=== PATIENT | male | born 1945 | race African-American/Black ===

== ENCOUNTER 2019-01-11 05:53 | Day surgery (SDC) | payer MEDICARE, MEDICAID ==
[2019-01-04 10:33] LABS: ANION GAP 8 mmol/L (5-15); BLOOD UREA NITROGEN 26 mg/dL (7-18); CALCIUM 9.3 MG/DL (8.5-10.1); CARBON DIOXIDE 28 MMOL/L (21-32); CHLORIDE 107 MMOL/L (98-107); CREATININE 0.8 MG/DL (0.55-1.30); POTASSIUM 5.1 MMOL/L (3.5-5.1); SODIUM 143 MMOL/L (136-145)
[2019-01-04 10:46] LABS: BASOPHILS % (AUTO) 2.1 % (0.0-2.0); HEMATOCRIT 42.9 % (42.0-52.0); HEMOGLOBIN 14.8 G/DL (14.2-18.0); LYMPHOCYTES % (AUTO) 18.9 % (20.0-45.0); MEAN CORPUSCULAR VOLUME 91 FL (80-99); NEUTROPHILS % (AUTO) 71.1 % (45.0-75.0); PLATELET COUNT 222 K/UL (150-450); RED BLOOD COUNT 4.69 M/UL (4.70-6.10); RED CELL DISTRIBUTION WIDTH 11.8 % (11.6-14.8); WHITE BLOOD COUNT 5.8 K/UL (4.8-10.8)
--- NOTE | 2019-01-04 19:37 | Cardiology Report ---
APPROVED REPORT EKG Measurement Heart [id number] Sinus bradycardia Abnormal ECG
--- NOTE | 2019-01-08 11:46 | Opthalmology H&P ---
Ophthalmology H&P H&P Chief Complaint: decreased vision in right eye HPI Vision Affects Ability to: read, focus/use eyes together, manage personal affairs HPI Narrative Blurry Vision Exam Visual Acuity: OD 20/80 OS Counting Fingers Tension: OD 17 OS 17 Eye Exam: normal OU: external exam, palpebral fissure-width, marginal reflex distance, levator function, corneas, anterior chambers; findings: lens - NS Cataract Ou, fundus exam - Poor View OS Assessment/Plan Treatment Plan: cataract extraction w/ lens implant Goals of Treatment: improvement of vision, enhance quality of life Attestation Attestation The risks and benefits of the surgery as well as alternative procedures were explained to the patient in detail. Henrik Narvaez MD Jan 08, 2019 11:46
--- NOTE | 2019-01-08 11:48 | Pre-Procedure Note/Attestation ---
Pre-Procedure Note/Attestation Complete Prior to Procedure Planned Procedure: right Procedure Narrative: Cataract Extraction With Intraocular Lens Implant Right Eye Indications for Procedure Pre-Operative Diagnosis: Nuclear Sclerotic Cataract Right Eye Attestation I attest that I discussed the nature of the procedure; its benefits; risks and complications; and alternatives (and the risks and benefits of such alternatives ), prior to the procedure, with the patient (or the patient's legal representative government relations). I attest that, if there was a reasonable possibility of needing a blood transfusion, the patient (or the patient's legal representative government relations) was given the [facility] standardized written summary, pursuant to the Michel Adalid Blood Safety Act ([place] Health and Safety Code # 1645, as amended). I attest that I re-evaluated the patient just prior to the surgery and that there has been no change in the patient's H&P, except as documented below: Henrik Narvaez MD Jan 08, 2019 11:48
[~2019-01-11] VITALS: Ht 180.3 cm; Wt 72.1 kg
[2019-01-11] VITALS (8 sets, daily range): BP systolic 137–174; BP diastolic 69–90
[~2019-01-11 05:53] MED LIST: ACETAMINOPHEN-1 EAC1 ORAL; CLARITIN10 M1 ORAL; FLUTICASONE PRO16 G1 NASAL; KENALOG 0.025%15 GM APPLIC; NAPROXEN500 M2 ORAL; NORCO 10/3251 EA ORAL; OMEPRAZOLE DR PO; VENTOLIN HFA18 GM INH
[2019-01-11] MEDS: Phenylephrine 10% Opth Soln 5ml RIGHT EYE SCH ×3 (06:30→06:48)
[2019-01-11] MEDS: Cyclopentolate 1% Opth Sol 2ml RIGHT EYE SCH ×3 (06:30→06:48)
[2019-01-11] MEDS: Diclofenac Sod 0.1% Op Soln RIGHT EYE SCH ×3 (06:30→06:48)
[2019-01-11] MEDS: Tobramycin Op Soln 0.3% 5ml RIGHT EYE SCH ×3 (06:30→06:48)
[2019-01-11] MEDS: Tropicamide 1% Opth 15ml Soln RIGHT EYE SCH ×3 (06:30→06:48)
[2019-01-11] MEDS ORDERED: Pilocarpine 1% Opth 15ml Soln ONE (07:00)
[2019-01-11] MEDS ORDERED: Dexamethasone 4mg/ml vial ONE (07:00)
[2019-01-11] MEDS ORDERED: Akten 3.5% 1ml Btl RIGHT EYE ONE (07:00)
[2019-01-11] MEDS ORDERED: Tetracaine 0.5% Opth 4ml Soln RIGHT EYE ONE (07:00)
[2019-01-11] MEDS ORDERED: Maxitrol Opth Oint 3.5gm ONE (07:00)
[2019-01-11] MEDS ORDERED: Proparacaine 0.5% Opth Soln 15ml RIGHT EYE ONE (07:00)
[2019-01-11] MEDS ORDERED: Pred Forte 1% Opth Susp 1ml ONE (07:00)
[2019-01-11] MEDS ORDERED: BSS 15ml BTL ONE (07:24)
[2019-01-11] MEDS ORDERED: BSS 500ml btl ONE (07:24)
[2019-01-11] MEDS ORDERED: Sodium Hyaluronate 14 mg/ml 0.85ml ONE (07:24)
[2019-01-11] MEDS ORDERED: Povidone-Iodine 5% opth solution ONE (07:24)
[2019-01-11] MEDS ORDERED: EPINEPHrine 1mg/1ml Amp ONE (07:24)
[2019-01-11] MEDS ORDERED: Bupivacaine 0.75% 30ml vial INJ ONE (07:25)
[2019-01-11] MEDS ORDERED: Lidocaine 2% MPF 5ml Vial INJ ONE (07:25)
[2019-01-11] MEDS ORDERED: LR 1000ml 1,000 ML IVLG SCH (07:44)
--- NOTE | 2019-01-11 07:44 | Anethesia Preoperative Eval ---
Anesthesia Pre-op PMH/ROS General Date of Evaluation: Jan 11, 2019 Anesthesiologist: Jose Francisco ASA Score: ASA 3 Mallampati Score Class I : Soft palate, uvula, fauces, pillars visible Class II: Soft palate, uvula, fauces visible Class III: Soft palate, base of uvula visible Class IV: Only hard plate visible Mallampati Classification: Class II Surgeon: Solange Diagnosis: Right cataract Surgical Procedure: Right cataract extraction with IOL Anesthesia History: none Family History: no anesthesia problems Allergies: Coded Allergies: No Known Allergies (Unverified , 01/11/19) Medications: see eMAR Patient NPO?: Yes NPO Date: Jan 10, 2019 NPO Time: 22:00 Past Medical History Cardiovascular: Denies: HTN, CAD, [place], valve dz, arrhythmia, other Pulmonary: Reports: asthma; Denies: COPD, JARON, other Gastrointestinal/Genitourinary: Denies: GERD, CRI, ESRD, other Neurologic/Psychiatric: Reports: CVA; Denies: dementia, depression/anxiety, TIA, other Endocrine: Denies: DM, hypothyroidism, steroids, other HEENT: Reports: INAJA (L), INAJA (R), other - mouth cancer s/p chemo 2012; Denies: cataract (L), cataract (R), glaucoma Hematology/Immune: Denies: anemia, DVT, bleeding disorder, other Musculoskeletal/Integumentary: Reports: OA, DJD; Denies: RA, DDD, edema, other Anesthesia Pre-op Phys. Exam Physician Exam Last Vital Signs Date Time Temp Pulse Resp B/P (MAP) Pulse Ox O2 Delivery O2 Flow Rate FiO2 01/11/19 06:34 Room Air 01/11/19 06:33 97.0 51 20 141/76 98 Constitutional: NAD Cardiovascular: RRR Respiratory: CTA Airway Exam Mallampati Score: Class II MO: limited ROM: limited Anesthesia Pre-op A/P Labs see chart Studies Pre-op Studies: EKG - sr Risk Assessment & Plan Assessment: ASA III Plan: MAC Status Change Before Surgery: No Pre-Antibiotics Drug: N/a Jenna Segovia MD Jan 11, 2019 07:44
[2019-01-11] MEDS ORDERED: DiphenhydrAMINE 50mg/ml Inj IVP PRN (07:45)
[2019-01-11] MEDS ORDERED: Midazolam 2mg/2ml Inj ONE (08:38)
[2019-01-11] MEDS ORDERED: Lidocaine 1% MPF 10mg/ml 5ml ONE (08:38)
[2019-01-11] MEDS ORDERED: LR 1000ml ONE (08:38)
[2019-01-11] MEDS ORDERED: fentaNYL 100 mcg/2 mL IV ONE (08:38)
--- NOTE | 2019-01-11 09:12 | Immediate Post-Op Evaluation ---
Immediate Post-Op Evalulation Immediate Post-Op Evalulation Procedure: Right cataract extraction with IOL Date of Evaluation: Jan 11, 2019 Time of Evaluation: 09:14 IV Fluids: 300 Blood Products: 0 Estimated Blood Loss: 0 Urinary Output: 0 Blood Pressure Systolic: 151 Blood Pressure Diastolic: 82 Pulse Rate: 61 Respiratory Rate: 13 O2 Sat by Pulse Oximetry: 99 Temperature (Fahrenheit): 97.6 Pain Score (1-10): 0 Nausea: No Vomiting: No Complications 0 Patient Status: awake, reacts, patent, none Hydration Status: adequate Drug: N/A Jenna Segovia MD Jan 11, 2019 09:12
--- NOTE | 2019-01-11 09:13 | 48 Hour Post Anesthesia Eval ---
Post Anesthesia Evaluation Procedure: Right cataract extraction with IOL Date of Evaluation: Jan 11, 2019 Airway: patent Nausea: No Vomiting: No Pain Intensity: 0 Hydration Status: adequate Cardiopulmonary Status: at baseline Mental Status/LOC: patient returned to baseline Post-Anesthesia Complications: 0 Follow-up care needed: ready to discharge Jenna Segovia MD Jan 11, 2019 09:12
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
--- NOTE | 2019-01-12 12:42 | Brief Operative Note ---
Immediate Post Operative Note Operative Note Chief Complaint: blurry vision Pre-op Diagnosis: Nuclear Sclerotic Cataract Right Eye Procedure: phaco with IOL Post-op Diagnosis: Pseudophakia Post-op Diagnosis: same as pre-op Findings: consistent w/pre-op dx studies Surgeon: Solange Anesthesiologist: PINEDA Anesthesia: MAC Specimen: none Complications: none Condition: stable Fluids: LR Estimated Blood Loss: none Drains: none Implant(s) used?: Yes Henrik Narvaez MD Jan 12, 2019 12:42
--- NOTE | 2019-01-12 12:42 | Operative Note - PDOC ---
Operative Note Operative Note Date of Operation/Procedure: Jan 11, 2019 Chief Complaint: blurry vision Pre-op Diagnosis: Nuclear Sclerotic Cataract Right Eye Procedure: phaco with IOL Post-op Diagnosis: Pseudophakia Post-op Diagnosis: same as pre-op Operative Findings: consistent w/pre-op dx studies Surgeon: Solange Anesthesiologist: PINEDA Anesthesia: MAC Specimen: none Complications: none Condition: stable Fluids: LR Estimated Blood Loss: none Drains: none Implant(s) used?: Yes Indications for Procedure CATARACT Description of Procedure This patient has been complaining visually significant cataract in the affected eye with the best corrected visual acuity under moderate glare conditions worse. The patient complains of difficulties with glare in performing activities of daily living and wants to manage personal affairs with comfort and accuracy and see well enough to move with safety at home and outdoors. The risks, benefits and alternatives of the procedure were discussed with the patient in the office prior to scheduling surgery. All questions from the patient were answered after the surgical procedure was explained in detail. The risks of the procedure as explained to the patient include, but are not limited to, pain, infection, bleeding, loss of vision, retinal detachment, need for further surgery, loss of lens nucleus, double vision, etc. Alternative procedures were discussed which include, to do nothing or seek a second opinion. Informed consent for this procedure was obtained from the patient. The patient was referred to a primary care physician for a cardiopulmonary clearance prior to surgery, after proper evaluation was done patient was properly scheduled for outpatient surgery. The patient was brought to the operating room where the anesthesiologist established I.V. lines and cardiac monitoring leads. Mild intravenous sedation was administered. The patient was then prepared with a 5% solution of povidone -iodine to the conjunctival fornix and lashes, and a 5% solution of povidone- iodine to the lids and periorbital skin. The patient was then draped in the usual sterile fashion. A lid speculum was then placed in the operative eye. A keratome blade was then used to create a biplanar incision into the anterior chamber. Viscoelastics was then instilled into the anterior chamber. A curvilinear capsulorrhexis was then fashioned with an utrata forceps. BSS and a G 27 cannula were then used to hydrodissect and hydro delineate the lens. Paracentesis incision was made at 3 o'clock with sharp blade. The phacoemulsification unit, after being properly adjusted and tested, was then used to emulsify the nucleus. Residual cortical material was aspirated with the irrigation and aspiration unit. Healon was then instilled into the anterior chamber. The corneal wound was then enlarged to the size of the optic with the josh keratome blade. The intraocular lens was then inspected for right power and size and thought to be satisfactory. Then the lens was gently placed in the capsular bag. Positioning within the capsular bag was confirmed by direct visualization. Optic centration was accomplished with a Sinskey hook. Viscoelastics was removed from the anterior chamber using the irrigation and aspiration unit. The corneal wound was then tested for leaks and none were found. The lid speculum were then removed. Sponge and needle counts were correct. An eye patch and shield were placed over the operative eye. The patient was taken to the recovery room in stable condition. There were no complications. The patient tolerated the procedure well. The patient was then transferred to the ambulatory surgery unit in stable and satisfactory condition , was given detailed written instructions and asked to follow up in the office the next day. Henrik Narvaez MD Jan 12, 2019 12:42
== END 2019-01-11 10:30 | disposition home or self-care (01) ==
LOC: SUR 05:53
DX: H25.11 Age-related nuclear cataract, right eye (principal); R00.1 Bradycardia, unspecified; R94.31 Abnormal electrocardiogram [ECG] [EKG]; M19.90 Unspecified osteoarthritis, unspecified site; Z86.73 Personal history of transient ischemic attack (TIA), and cerebral infarction without residual deficits; Z87.891 Personal history of nicotine dependence; J45.909 Unspecified asthma, uncomplicated; M54.9 Dorsalgia, unspecified; Z79.899 Other long term (current) drug therapy
CPT/HCPCS: 36415; 66984; 80048; 85025; 93005; J0171; J1100; J2250; J3010; J3370; V2632; 94003; 94150

== ENCOUNTER 2019-11-22 05:59 | Day surgery (SDC) | payer MEDICARE, MEDICAID ==
[2019-11-18 07:39] LABS: BASOPHILS % (AUTO) 0.9 % (0.0-2.0); EOSINOPHILS % (AUTO) 1.1 % (0.0-3.0); HEMATOCRIT 43.8 % (42.0-52.0); HEMOGLOBIN 14.8 G/DL (14.2-18.0); LYMPHOCYTES % (AUTO) 13.8 % (20.0-45.0); MEAN CORPUSCULAR VOLUME 94 FL (80-99); MONOCYTES % (AUTO) 7.9 % (1.0-10.0); NEUTROPHILS % (AUTO) 76.3 % (45.0-75.0); PLATELET COUNT 270 K/UL (150-450); RED BLOOD COUNT 4.67 M/UL (4.70-6.10); RED CELL DISTRIBUTION WIDTH 11.8 % (11.6-14.8); WHITE BLOOD COUNT 6.1 K/UL (4.8-10.8)
[2019-11-18 08:01] LABS: ANION GAP 13 mmol/L (5-15); BLOOD UREA NITROGEN 16 mg/dL (7-18); CALCIUM 9.5 MG/DL (8.5-10.1); CARBON DIOXIDE 26 MMOL/L (21-32); CHLORIDE 103 MMOL/L (98-107); POTASSIUM 3.9 MMOL/L (3.5-5.1); SODIUM 142 MMOL/L (136-145)
--- NOTE | 2019-11-18 15:30 | Pre-op HX & Phy Repo 2 SIG ---
DATE OF ADMISSION: 11/22/2019 PRESURGICAL INTERNAL MEDICINE HISTORY AND PHYSICAL DATE OF EVALUATION: 11/18/2019. REASON FOR EVALUATION: I was asked by Dr. Henrik Narvaez to see this 74-year-old male, who is going for elective surgery of left eye cataract Friday, November 22, 2019. The patient was evaluated today, November 18, 2019 at outpatient procedure at [facility]. This is second visit to [facility] for this 74-year-old male. He was operated on the right eye cataract in December 2018. Now, the patient has nuclear sclerotic cataract, left eye. The patient was evaluated. Chart was reviewed. PAST MEDICAL HISTORY: The patient's past medical history is remarkable for bronchial asthma. Denies history of hypertension. No seizures. The patient has a history of stroke, left hemiplegia a few years ago. No history of heart attack. Denies history of chest pain or palpitation. The patient has history of cancer of the throat in 2003, cataract surgery in 2018 on the right eye, and knee surgery. FAMILY HISTORY: Mother had cancer and father unknown. MEDICATIONS: Present medications include Claritin, Ventolin inhaler, triamcinolone nasal spray, Naprosyn, Tylenol, and omeprazole. SOCIAL HISTORY: The patient was a smoker in the past, stopping in 2017. Same with alcohol. PHYSICAL EXAMINATION: GENERAL: The patient is alert, well-developed and well-nourished male in his 70s. VITAL SIGNS: Blood pressure 133/67, temperature 97, and pulse 65. O2 saturation 97% on room air. SKIN: Warm and clear. No rashes. No diaphoresis. LYMPHATICS: Lymph nodes not enlarged. HEENT: Head, normocephalic and atraumatic. Ears, clear. Eyes, full description per Dr. Henrik Narvaez. Mouth, dentures upper and lower. Clear and moist. NECK: No jugular venous distention. Carotids artery +2. No palpable mass. Trachea midline. CHEST: No deformity or asymmetry. LUNGS: Clear to auscultation and percussion. HEART: Sinus rhythm. No ectopy. No murmur. No S3 or S4. ABDOMEN: Soft. No palpable mass. Liver and spleen not enlarged. EXTREMITIES: Degenerative joint disease of knee and spine, low back pain. GENITOURINARY: No dysuria. No CVA tenderness. DIAGNOSTIC DATA: ECG, sinus bradycardia 57 per minute. T-wave abnormality. Consider lateral ischemia. The patient to be NPO after midnight Friday. Laboratory checked and within normal limits. IMPRESSION: 1. Nuclear sclerotic cataract, left eye. 2. Bronchial asthma in the past. 3. Degenerative joint disease of knee 4. History of throat cancer. 5. Sinus bradycardia on EKG. PLAN: Cataract extraction of left eye with intraocular lens implant per Dr. Henrik Narvaez. CONCLUSION: The patient's vital signs are stable. No history of heart attack. EKG showed lateral ischemia. The patient's denied any cardiac symptoms. The patient to be NPO after midnight . The patient's condition is optimized for surgery. Thank you very much, Dr. Narvaez, for privilege to participate in presurgical care of this interesting patient. Jaycee Brasher M.D. DR: ASHLEY JOB#: [id number] CC:
--- NOTE | 2019-11-18 17:03 | Opthalmology H&P ---
Ophthalmology H&P H&P Chief Complaint: decreased vision in left eye HPI Vision Affects Ability to: read, manage personal affairs HPI Narrative Blurry vision Exam Visual Acuity: OD 20/25 OS Counting Fingers Eye Exam: normal OU: external exam, palpebral fissure-width, marginal reflex distance, levator function, corneas, anterior chambers, fundus exam; findings: lens - NS cataract OS Assessment/Plan Treatment Plan: cataract extraction w/ lens implant Goals of Treatment: improvement of vision, enhance quality of life Attestation Attestation The risks and benefits of the surgery as well as alternative procedures were explained to the patient in detail. Henrik Narvaez MD Nov 18, 2019 17:03
--- NOTE | 2019-11-18 17:05 | Pre-Procedure Note/Attestation ---
Pre-Procedure Note/Attestation Complete Prior to Procedure Planned Procedure: left Procedure Narrative: Cataract extraction with IOL implant left eye Indications for Procedure Pre-Operative Diagnosis: Nuclear sclerotic cataract left eye Attestation I attest that I discussed the nature of the procedure; its benefits; risks and complications; and alternatives (and the risks and benefits of such alternatives ), prior to the procedure, with the patient (or the patient's legal patient relations representative). I attest that, if there was a reasonable possibility of needing a blood transfusion, the patient (or the patient's legal patient relations representative) was given the [facility] standardized written summary, pursuant to the Michel Adalid Blood Safety Act ([place] Health and Safety Code # 1645, as amended). I attest that I re-evaluated the patient just prior to the surgery and that there has been no change in the patient's H&P, except as documented below: Henrik Narvaez MD Nov 18, 2019 17:05
[~2019-11-22] VITALS: Ht 180.3 cm; Wt 74.8 kg
[2019-11-22] VITALS (9 sets, daily range): BP systolic 128–173; BP diastolic 73–95
[2019-11-22] MEDS: Tropicamide 1% Opth 15ml Soln LEFT EYE SCH ×3 (06:36→06:57)
[2019-11-22] MEDS: Ciprofloxacin Opth Soln 2.5ml LEFT EYE SCH ×3 (06:36→06:58)
[2019-11-22] MEDS: Phenylephrine 10% Opth Soln 5ml LEFT EYE SCH ×3 (06:36→06:57)
[2019-11-22] MEDS: Cyclopentolate 1% Opth Sol 2ml LEFT EYE SCH ×3 (06:36→06:57)
[2019-11-22] MEDS ORDERED: Tetracaine 0.5% Opth 4ml Soln LEFT EYE ONE (07:00)
[2019-11-22] MEDS ORDERED: Proparacaine 0.5% Opth Soln 15ml LEFT EYE ONE (07:00)
[2019-11-22] MEDS ORDERED: Akten 3.5% 1ml Btl LEFT EYE ONE (07:00)
[2019-11-22] MEDS ORDERED: BSS 500ml btl ONE (07:11)
[2019-11-22] MEDS ORDERED: BSS 15ml BTL ONE (07:11)
[2019-11-22] MEDS ORDERED: Povidone-Iodine 5% opth solution ONE (07:12)
[2019-11-22] MEDS ORDERED: Sodium Hyaluronate 10 mg/ml 0.85ml ONE (07:12)
[2019-11-22] MEDS ORDERED: LR 1000ml ONE (08:00)
[2019-11-22] MEDS ORDERED: Sterile Water Irrig 1000ml IRRIG ONE (08:00)
[2019-11-22] MEDS ORDERED: fentaNYL 100 mcg/2 mL IV ONE (08:00)
[2019-11-22] MEDS ORDERED: NS Irrig 1000ml ONE (08:00)
[2019-11-22] MEDS ORDERED: Propofol 200mg/20ml IV ONE (08:00)
[2019-11-22] MEDS ORDERED: LR 1000ml 1,000 ML IVLG SCH (08:05)
--- NOTE | 2019-11-22 08:05 | Anethesia Preoperative Eval ---
Anesthesia Pre-op PMH/ROS General Date of Evaluation: Nov 22, 2019 Time of Evaluation: 08:02 Anesthesiologist: Elo ASA Score: ASA 3 Mallampati Score Class I : Soft palate, uvula, fauces, pillars visible Class II: Soft palate, uvula, fauces visible Class III: Soft palate, base of uvula visible Class IV: Only hard plate visible Mallampati Classification: Class II Surgeon: Solange Diagnosis: L eye cataract Surgical Procedure: Cataract extraction Anesthesia History: none Social History: smoking - h/o Family History: no anesthesia problems Allergies: Coded Allergies: No Known Allergies (Unverified , 01/11/19) Medications: see eMAR Patient NPO?: Yes Past Medical History Cardiovascular: Reports: HTN; Denies: CAD, [place], valve dz, arrhythmia, other Pulmonary: Reports: asthma, COPD, other - Laryngeal CA; Denies: JARON Gastrointestinal/Genitourinary: Reports: GERD; Denies: CRI, ESRD, other Neurologic/Psychiatric: Reports: CVA - L sided weakness; Denies: dementia, depression/anxiety, TIA, other Endocrine: Denies: DM, hypothyroidism, steroids, other HEENT: Reports: cataract (L), cataract (R); Denies: glaucoma, [place] (L), [place] (R), other Hematology/Immune: Denies: anemia, DVT, bleeding disorder, other Musculoskeletal/Integumentary: Reports: OA PMH Narrative: as above PSxH Narrative: see chart Anesthesia Pre-op Phys. Exam Physician Exam Last Vital Signs Date Time Temp Pulse Resp B/P (MAP) Pulse Ox O2 Delivery O2 Flow Rate FiO2 11/22/19 06:58 Room Air 11/22/19 06:38 97.8 59 18 130/73 99 Constitutional: NAD Neurologic: CN 2-12 intact Cardiovascular: RRR, no M/R/G Respiratory: other - some wheezing Airway Exam Mallampati Score: Class III MO: limited Neck: stiff ROM: limited Teeth: missing Dentures: no upper, no lower Anesthesia Pre-op A/P Labs see chart Studies Pre-op Studies: EKG - SR Risk Assessment & Plan Assessment: ASA 3 Plan: MAC Status Change Before Surgery: Jose Nguyen MD Nov 22, 2019 08:05
[2019-11-22] MEDS ORDERED: fentaNYL 100 mcg/2 mL IV PRN (08:15)
[2019-11-22] MEDS ORDERED: Acetylcholine Injection (OR) ONE (08:36)
--- NOTE | 2019-11-22 09:13 | Immediate Post-Op Evaluation ---
Immediate Post-Op Evalulation Immediate Post-Op Evalulation Procedure: L eye cataract extraction with IOL Date of Evaluation: Nov 22, 2019 Time of Evaluation: 09:12 IV Fluids: 300 Blood Products: none Estimated Blood Loss: none Urinary Output: none Blood Pressure Systolic: 156 Blood Pressure Diastolic: 72 Pulse Rate: 68 Respiratory Rate: 20 O2 Sat by Pulse Oximetry: 99 Temperature (Fahrenheit): 97.6 Pain Score (1-10): 1 Nausea: No Vomiting: No Complications none Patient Status: awake, patent, none Hydration Status: adequate Jose Gasca MD Nov 22, 2019 09:13
--- NOTE | 2019-11-22 10:31 | 48 Hour Post Anesthesia Eval ---
Post Anesthesia Evaluation Procedure: L eye cataract extraction with IOL Date of Evaluation: Nov 22, 2019 Time of Evaluation: 10:30 Blood Pressure Systolic: 128 0: 76 Pulse Rate: 68 Respiratory Rate: 22 Temperature (Fahrenheit): 97.6 O2 Sat by Pulse Oximetry: 98 Airway: patent Nausea: No Vomiting: No Pain Intensity: 1 Hydration Status: adequate Cardiopulmonary Status: stable Mental Status/LOC: patient returned to baseline Follow-up Care/Observations: n/a Post-Anesthesia Complications: none Follow-up care needed: ready to discharge Jose Gasca MD Nov 22, 2019 10:31
[2019-11-22] MEDS ORDERED: Ciprofloxacin Opth Soln 2.5ml LEFT EYE ONE ×2 (14:16→14:30)
--- NOTE | 2019-11-24 08:23 | Brief Operative Note ---
Immediate Post Operative Note Operative Note Chief Complaint: Blurry vision Pre-op Diagnosis: Nuclear sclerotic cataract left eye Procedure: Cataract extraction with IOL implant left eye Post-op Diagnosis: Pseudo OS Findings: consistent w/pre-op dx studies Surgeon: Henrik Narvaez MD Anesthesiologist: Jose Gasca MD Anesthesia: MAC Specimen: none Complications: none Condition: stable Fluids: LR Estimated Blood Loss: none Drains: none Implant(s) used?: Yes - IOL-OS Henrik Narvaez MD Nov 24, 2019 08:23
--- NOTE | 2019-11-24 08:25 | Operative Note - PDOC ---
Operative Note Operative Note Date of Operation/Procedure: Nov 22, 2019 Chief Complaint: Blurry vision Pre-op Diagnosis: Nuclear sclerotic cataract left eye Procedure: Cataract extraction with IOL implant left eye Post-op Diagnosis: Pseudo OS Operative Findings: consistent w/pre-op dx studies Surgeon: Henrik Narvaez MD Anesthesiologist: Jose Gasca MD Anesthesia: MAC Specimen: none Complications: none Condition: stable Fluids: LR Estimated Blood Loss: none Drains: none Implant(s) used?: Yes - IOL-OS Indications for Procedure Nuclear sclerotic cataract left eye Description of Procedure This patient has been complaining visually significant cataract in the left eye with the best corrected visual acuity of counting fingers at three feet. The patient complains of difficulties with glare in performing activities of daily living and wants to manage personal affairs with comfort and accuracy and see well enough to move with safety at home and outdoors. The risks, benefits and alternatives of the procedure were discussed with the patient in the office prior to scheduling surgery. All questions from the patient were answered after the surgical procedure was explained in detail. The risks of the procedure as explained to the patient include, but are not limited to, pain, infection, bleeding, loss of vision, retinal detachment, need for further surgery, loss of lens nucleus, double vision, etc. Alternative procedures were discussed which include, to do nothing or seek a second opinion. Informed consent for this procedure was obtained from the patient. The patient was referred to a primary care physician for a cardiopulmonary clearance prior to surgery, after proper evaluation was done patient was properly scheduled for outpatient surgery. The patient was brought to the operating room where the anesthesiologist established I.V. lines and cardiac monitoring leads. Mild intravenous sedation was administered. The patient was then prepared with a 5% solution of povidone -iodine to the conjunctival fornix and lashes, and a 5% solution of povidone- iodine to the lids and periorbital skin. The patient was then draped in the usual sterile fashion. A lid speculum was then placed in the operative eye. A keratome blade was then used to create a biplanar incision into the anterior chamber. Viscoelastics was then instilled into the anterior chamber. A capsulorrhexis was then fashioned with an utrata forceps. BSS and a cannula were then used to hydrodissect and hydro delineate the lens. Paracentesis incision was made at 3 o'clock with sharp blade. The phacoemulsification unit, after being properly adjusted and tested, was then used to emulsify the nucleus. Residual cortical material was aspirated with the irrigation and aspiration unit. Healon was then instilled into the anterior chamber. The corneal wound was then enlarged to the size of the optic with the josh keratome blade. The intraocular lens was then inspected for right power and size and thought to be satisfactory. Then the lens was gently placed in the capsular bag. Positioning within the capsular bag was confirmed by direct visualization. Optic centration was accomplished with a Sinskey hook. Viscoelastics was removed from the anterior chamber using the irrigation and aspiration unit. The corneal wound was then tested for leaks and none were found. The lid speculum were then removed. Sponge and needle counts were correct. An eye patch and shield were placed over the operative eye. The patient was taken to the recovery room in stable condition. There were no complications. The patient tolerated the procedure well. The patient was then transferred to the ambulatory surgery unit in stable and satisfactory condition , was given detailed written instructions and asked to follow up in the office the next day. Henrik Narvaez MD Nov 24, 2019 08:25
== END 2019-11-22 10:20 | disposition home or self-care (01) ==
LOC: SUR 05:59
DX: H25.12 Age-related nuclear cataract, left eye (principal); M17.10 Unilateral primary osteoarthritis, unspecified knee; Z85.818 Personal history of malignant neoplasm of other sites of lip, oral cavity, and pharynx; R00.1 Bradycardia, unspecified; Z79.899 Other long term (current) drug therapy; Z87.891 Personal history of nicotine dependence; J44.9 Chronic obstructive pulmonary disease, unspecified; M19.90 Unspecified osteoarthritis, unspecified site; G81.94 Hemiplegia, unspecified affecting left nondominant side; K21.9 Gastro-esophageal reflux disease without esophagitis
CPT/HCPCS: 36415; 66984; 80048; 85025; 85610; 85730; J2704; J3010; J3370; J7120; V2632; 94003; 94150